=== PATIENT | female | born 1955 | race Caucasian/White ===

== ENCOUNTER 2021-02-17 04:21 | Inpatient (IN) | payer MEDICARE, OTHER ==
[~2021-02-17] VITALS: Ht 152.4 cm; Wt 80.7 kg
[2021-02-17 05:05] LABS: HEMOGLOBIN 14.2 gm/dl (12.3-15.3); RED BLOOD COUNT 4.93 M/UL (4.00-5.10); WHITE BLOOD COUNT 16.7 K/UL (4.5-11.0)
[2021-02-17 05:20] LABS: BUN/CREATININE RATIO 23 (0-10)
[2021-02-17] MEDS ORDERED: VITAMIN D21250 MCG PO (11:56)
[2021-02-17] MEDS ORDERED: SIMVASTATIN80 MG PO (11:56)
[2021-02-17] MEDS ORDERED: DITROPAN XL5 MG PO (11:57)
[2021-02-17] MEDS ORDERED: DAILY VITAMIN1 EAC2 PO (11:57)
[2021-02-17] MEDS ORDERED: AMLODIPINE BESYL5 MG PO (11:57)
[2021-02-17] MEDS ORDERED: OMEGA 3 FISH O1 EACH PO (11:58)
[2021-02-17] MEDS ORDERED: GLUCOSAMINE1000 MG PO (11:58)
[2021-02-17] MEDS ORDERED: IBUPROFEN400 MG PO (11:58)
[2021-02-17] MEDS ORDERED: ODOR FREE GARL1 EAC1 PO (11:58)
[2021-02-17] MEDS ORDERED: ST. JOSEPH ASPI81 M1 PO (11:59)
[2021-02-18 04:10] LABS: RED BLOOD COUNT 4.54 M/UL (4.00-5.10)
[2021-02-18 04:14] LABS: WHITE BLOOD COUNT 11.8 K/UL (4.5-11.0)
[2021-02-18 04:29] LABS: BUN/CREATININE RATIO 23 (0-10)
[2021-02-19 04:22] LABS: HEMOGLOBIN 11.9 gm/dl (12.3-15.3); RED BLOOD COUNT 4.24 M/UL (4.00-5.10); WHITE BLOOD COUNT 9.9 K/UL (4.5-11.0)
[2021-02-19 04:49] LABS: BUN/CREATININE RATIO 20 (0-10)
[2021-02-20 03:33] LABS: HEMOGLOBIN 12.3 gm/dl (12.3-15.3); RED BLOOD COUNT 4.37 M/UL (4.00-5.10); WHITE BLOOD COUNT 7.9 K/UL (4.5-11.0)
[2021-02-20 06:39] LABS: BUN/CREATININE RATIO 19 (0-10)
[2021-02-20] MEDS ORDERED: OMNICEF 300 MG300 MG PO (11:38)
[2021-02-21 14:09] LABS: ORGANISM ID Not indicated. (.); SPECIMEN SOURCE Urine (.); STREPTOCOCCUS PNEUMONIAE AG Negative (Negative)
== END 2021-02-20 14:18 | disposition home or self-care (01) | DRG 871 ==
LOC: ER1 04:21 → CDU 06:09 → MED SURG 4 06:09
PROVIDERS: Internal Medicine; Student in an Organized Health Care Education/Training Program; ADMIT Internal Medicine
DX: A41.9 Sepsis, unspecified organism (principal); J18.9 Pneumonia, unspecified organism; S32.10XA Unspecified fracture of sacrum, initial encounter for closed fracture; J44.0 Chronic obstructive pulmonary disease with (acute) lower respiratory infection; Z20.822 Contact with and (suspected) exposure to COVID-19; F17.210 Nicotine dependence, cigarettes, uncomplicated; R59.1 Generalized enlarged lymph nodes; E07.9 Disorder of thyroid, unspecified; E78.00 Pure hypercholesterolemia, unspecified; W19.XXXA Unspecified fall, initial encounter; M25.552 Pain in left hip; I10 Essential (primary) hypertension; E78.5 Hyperlipidemia, unspecified; Z79.82 Long term (current) use of aspirin; Z90.49 Acquired absence of other specified parts of digestive tract; Z88.6 Allergy status to analgesic agent; Z88.8 Allergy status to other drugs, medicaments and biological substances; Z91.81 History of falling
CPT/HCPCS: 36415; 36600; 70450; 71045; 71260; 72125; 72131; 73502; 80048; 80053; 82550; 82553; 82803; 83605; 83735; 83874; 83880; 84132; 84484; 85025; 85379; 86140; 87040; 87070; 87205; 87278; 87899; 93005; 94640; 94664; 94760; 96374; 96375; 97116-GP-CQ; 97161; 97166; 99285; J0456; J0696; J1650; J3480; J7030; Q9967; U0002

== ENCOUNTER → 2021-05-04 | Outpatient (CLI) | payer MEDICARE, OTHER ==
[~2021-05-04] MED LIST: AMLODIPINE BESYL5 MG PO; DAILY VITAMIN1 EAC2 PO; DITROPAN XL5 MG PO; GLUCOSAMINE1000 MG PO; IBUPROFEN400 MG PO; ODOR FREE GARL1 EAC1 PO; OMEGA 3 FISH O1 EACH PO; OMNICEF 300 MG300 MG PO; SIMVASTATIN80 MG PO; ST. JOSEPH ASPI81 M1 PO; VITAMIN D21250 MCG PO
== END ==
LOC: KOH-I 11:00
DX: E07.9 Disorder of thyroid, unspecified (principal); E04.2 Nontoxic multinodular goiter
CPT/HCPCS: 76536

== ENCOUNTER → 2021-05-12 | Outpatient (CLI) | payer MEDICARE, OTHER | LOC: CT 13:15 | DX: J18.9 Pneumonia, unspecified organism (principal) | CPT/HCPCS: 36415; 82565; Q9967 ==

== ENCOUNTER → 2021-05-18 | Outpatient (CLI) | payer MEDICARE, OTHER | LOC: EXRD 11:08 | DX: J30.9 Allergic rhinitis, unspecified (principal); M19.90 Unspecified osteoarthritis, unspecified site; Z28.21 Immunization not carried out because of patient refusal; I10 Essential (primary) hypertension; J18.9 Pneumonia, unspecified organism; R91.8 Other nonspecific abnormal finding of lung field | CPT/HCPCS: 71046 ==